=== PATIENT | male | born 1955 | race Caucasian/White ===

== ENCOUNTER 2020-09-29 07:07 | Observation (INO) | payer BC ==
[~2020-09-29] VITALS: Ht 180.3 cm; Wt 86.6 kg
[~2020-09-29 07:07] MED LIST: AZOR 10-20 MG1 EACH PO; GABAPENTIN100 MG PO; LOTREL 10-20 M1 EACH PO; METFORMIN HCL500 M2 PO; PROTONIX20 MG PO; TYLENOL EXTRA500 MG PO; ULTRAM50 MG PO
[2020-09-29] MEDS ORDERED: DEXAMETHASONE SOD PHOS 10 MG/1 ML VIAL ONE (07:41)
[2020-09-29] MEDS ORDERED: GABAPENTIN 300 MG CAP ONE (07:41)
[2020-09-29] MEDS ORDERED: CELECOXIB 200 MG CAP ONE (07:41)
[2020-09-29] MEDS ORDERED: CEFAZOLIN SOD 1 GM/NS 50ML 100 ML IV ONE (07:42)
[2020-09-29] MEDS ORDERED: ROPIVACAINE 246.25 MG, EPINEPHRINE HCL 1:1000 1ML 0.5 MG, CLONIDINE HCL 0.08 MG, KETORO... INJ ONE ×5 (08:00)
[2020-09-29] MEDS ORDERED: BUPIVACAINE 7.5MG/ML /DEXTROSE 82.5MG/ML 2 ML AMP INJ ONE (08:54)
[2020-09-29] MEDS ORDERED: VANCOMYCIN HCL 1,000 MG ONE (08:59)
[2020-09-29] MEDS ORDERED: TRANEXAMIC ACID 1,000 MG/10 ML ML ONE (09:00)
[2020-09-29] MEDS ORDERED: SODIUM CHLORIDE 0.9% 500ML 500 ML ONE (09:00)
[2020-09-29] MEDS ORDERED: HYDROCODONE/APAP 5MG-325MG TAB PO PRN (11:15)
[2020-09-29] MEDS ORDERED: KETOROLAC TROMETHAMINE 30 MG/ML VIAL IV PRN (11:15)
[2020-09-29] MEDS ORDERED: ZOLPIDEM TARTRATE 5 MG TAB PO PRN (11:15)
[2020-09-29] MEDS ORDERED: DOCUSATE SODIUM 100 MG CAP PO PRN (11:15)
[2020-09-29] MEDS ORDERED: DIPHENHYDRAMINE HCL INJ 50 MG/ML VIAL IV PRN (11:15)
[2020-09-29] MEDS ORDERED: HYDROCODONE/APAP 7.5MG-325MG 1 EA TAB PO PRN (11:15)
[2020-09-29] MEDS ORDERED: ACETAMINOPHEN 650 MG SUPP PR PRN (11:15)
[2020-09-29] MEDS ORDERED: FENTANYL CITRATE/PF 100MCG/2 ML INJ ONE (11:51)
[2020-09-29] MEDS ORDERED: INSULIN REGULAR, HUMAN 100 UNIT/1 ML 3ML VIAL ONE (12:02)
--- NOTE | 2020-09-29 12:26 | Diagnostic Imaging Report ---
EXAM: PELVIS AP 1-2 VIEWS DATE: 09/29/2020 11:49 AM INDICATION: Postop COMPARISON: None FINDINGS: There are post surgical changes from recent left hip arthroplasty. Hardware appears intact and in anatomic alignment. There is surrounding soft tissue edema and subcutaneous air present, likely postsurgical. Overlying skin sravan noted. There are moderate degenerative changes of the right hip. There is no evidence for acute fracture or dislocation. No focal lytic or blastic abnormality is identified. IMPRESSION: Expected postsurgical changes from recent left hip arthroplasty. Signed by: Dr. Roger Oates MD on 09/29/2020 12:23 PM
--- OUTSIDE RECORDS SUMMARY | 2020-09-29 13:02 | XMS REPORT | Continuity of Care Document ---
Author Author [facility] t Organization [facility] Address [address] [place] [id number] Phone Unavailable Care Team Providers Care Senior Materials Scientist Name Role Phone VALENTINE BUNCH Attphypatricia Unavailable Marlene GRUBER Admphypatricia Unavailable Payers Payer Name Policy Type Policy Number Effective Date Expiration Date S ource Problems This patient has no known problems. Allergies, Adverse Reactions, Alerts Allergy Name Allergy Type Status Severity Reaction(s) Onset Date Inacti ve Date Treating Clinician Comments Source No Known Allergies DA Active U 2015-02-02 00:00:00 [facility] Medications This patient has no known medications. Procedures This patient has no known procedures. Results Test Description Test Time Test Comments Results Result Comments Source PELVIS AP 1-2 VIEWS 2020-09-29 12:22:00 [facility] 1955 Sex: M [facility] [address] [place], [place] [address] Patient Name: ANDREA GAUTAM MR #: [id number] : 1955 Age/Sex: 65/M Req #: [id number] Adm Physician: Ordered by: VALENTINE BUNCH MD Report #: [id number] Location: OR Room/Bed: Procedure: [id number] DX/PELVIS AP 1-2 VIEWS Exam Date: 09/29/20 Exam Time: 1149 REPORT STATUS: Signed EXAM: PELVIS AP 1-2 VIEWS DATE: 09/29/2020 11:49 AM INDICATION: Postop COMPARISON: None FINDINGS: There are post surgical changes from recent left hip arthroplasty. Hardware appears intact and in anatomic alignment. There is surrounding soft tissue edema and subcutaneous air present, likely postsurgical. Overlying skin sravan noted. There are moderate degenerative changes of the right hip. There is no evidence for acute fracture or dislocation. No focal lytic or blastic abnormality is identified. IMPRESSION: Expected postsurgical changes from recent left hip arthroplasty. Signed by: Dr. Roger Oates MD on 09/29/2020 12:23 PM Dictated By: ROGER OATES MD 1223 Transcribed By: HARESH on 09/29/20 1223 COPY TO: VALENTINE BUNCH MD
[2020-09-29] MEDS ORDERED: PROPOFOL IV EMULSION 10 MG/ML 20 ML VIAL ONE (13:07)
[2020-09-29] MEDS ORDERED: ONDANSETRON HCL INJ 2MG/ML 2ML 2 MG/ML VIAL ONE (13:07)
[2020-09-29] MEDS ORDERED: DEXAMETHASONE SOD PHOS INJ 4 MG/ML VIAL ONE (13:07)
[2020-09-29] MEDS ORDERED: KETOROLAC TROMETHAMINE 30 MG/ML VIAL ONE (13:07)
[2020-09-29] MEDS ORDERED: SEVOFLURANE INHAL SOLN 250 ML PEN BTL ONE (13:07)
[2020-09-29] MEDS ORDERED: LIDOCAINE HCL 2% JELLY 5 ML TUBE ONE (13:07)
[2020-09-29] MEDS ORDERED: ROCURONIUM BROMIDE 10 MG/ML 5ML VIAL IV ONE (13:07)
[2020-09-29] MEDS ORDERED: LIDOCAINE HCL 2% LOCAL INJ 5 ML SDV VIAL INJ ONE (13:07)
--- NOTE | 2020-09-29 13:31 | NUR ---
RECEIVED REPORT FROM [facility]ADR[facility] PACU. PATIENT ON THE UNIT @ 1320 VIA STRETCHER. PATIENT IN STABLE CONDITION, NO S/S OF DISTRESS NOTED. NO PAIN VOICE. RESPIRATIONS, EVEN AND NONLABORED. DRESSING TO THE RIGHT HIP C/D/I. IV SITE ASYMPTOMATIC AND PATENT, TRANSPARENT DRESSING C/D/I. ABDUCTOR PILLOW IN PLACE. RAOUL HOSE APPLIED. BED IN LOWEST POSITION AND LOCKED, SIDE RAILS X 2, NONSKID SOCKS APPLIED CALL LIGHT WITHIN REACH.
--- NOTE | 2020-09-29 13:38 | Operative Report ---
DATE OF PROCEDURE: 09/29/2020 SURGEON: Huseyin Armenta MD TECHNICAL PUBLICATIONS WRITER: Nathaniel Hernandez, certified PA. PREOPERATIVE DIAGNOSIS: Osteoarthritis, left hip. POSTOPERATIVE DIAGNOSIS: Osteoarthritis, left hip. PROCEDURE: Left total hip arthroplasty. INDICATIONS: The patient is a 65-year-old gentleman with advanced osteoarthritis of both knees and both hips. He presented to my office with the desire to proceed with definitive treatment. He would like to start with a left total hip replacement. The risks and benefits of the procedure were thoroughly explained. All of his questions were answered. He states he understands and wishes to proceed. DESCRIPTION OF PROCEDURE: The patient was brought to the operating room and placed under general anesthetic. He received prophylactic antibiotics and tranexamic acid in the holding area. He was positioned in the right lateral decubitus position. His left hip was prepped and draped in a sterile manner. A preoperative time-out was performed. A posterior approach was made to the left hip. Hemostasis was obtained with electrocautery. The deep fascia was incised and a self-retaining Charnley retractor was placed. The hip was severely contracted. Exposure of the posterior capsule was challenging. A portion of the short external rotators and posterior capsule were released. Additional soft tissue releases were performed to eventually allow dislocation of the hip joint. An oscillating saw was used to resect the femoral head. Complete loss of articular cartilage was noted. Acetabular retractors were placed. A fairly aggressive soft tissue releases were necessary to gain exposure to the socket. Even with these releases, exposure was challenging. The true floor of the acetabulum was established with a 46 mm reamer. The socket was sequentially reamed up to 59 mm. This accomplished bleeding hemispherical cancellous bone. A Benigno Biomet OsseoTi socket with a 60 mm outer diameter was then impacted into place. Good primary bone fixation was felt to be obtained. Fixation was augmented with a single 25 mm cancellous screw placed into the ilium. A highly cross-linked polyethylene liner with a 36 mm inner diameter was then seated into place. Care was taken to make sure that there was no evidence of soft tissue interposition. The hip was thoroughly irrigated on several occasions with a shower tip pulsatile lavage. The socket was then packed with a moistly soaked lap sponge. Attention was directed towards the proximal femur. A box cutting osteotome and taper pin reamer were used to establish entry to the femoral canal. The Benigno/Biomet taper lock broaches were impacted. It required in size 18 stem to have good canal fill and stability for trial reduction. I elected to use a +3 mm head to diminish anterior impingement. This also seemed to provide appropriate religious of limb length and good stability throughout the arc of motion. With bilateral significant knee contractures, assessment of limb length was challenging. The trial components were then removed. The hip was further irrigated with a shower tip pulsatile lavage. The implant was seated in approximately 15 degrees of anteversion. The +3 mm neck and 36 mm ceramic head were then seated onto the stem once it had been cleaned and dried. A final reduction was performed. A large thickened portion of the posterior capsule was preserved and was repaired using #2 Ethibond. The hip was further irrigated and then 500 mg of vancomycin powder were sprinkled into the deep wound. The fascia was closed with interrupted #2 Ethibond. The skin was closed with subcuticular Vicryl and sravan. A sterile bandage was applied. The patient was returned to the supine position, extubated and transported to recovery room in stable condition. Estimated blood loss was 100 mL. All needle and sponge counts were correct. Huseyin Armenta MD DR/KENYON /[id number]
[2020-09-29 13:48] VITALS: BP 118/75
[2020-09-29 13:57] VITALS: BP 118/75
[2020-09-29] MEDS: SODIUM CHLORIDE 0.9% 1000ML 1,000 ML IV SCH ×2 (14:24→22:28)
[2020-09-29] MEDS: ONDANSETRON HCL INJ 2MG/ML 2ML 2 MG/ML VIAL IV PRN (15:54)
[2020-09-29 16:00] VITALS: BP 130/86
--- NOTE | 2020-09-29 16:05 | NUR ---
DR DONNELLY OFFICE PREARRANGED FOLLOWING DISCHARGE PLAN OF:HOME [address] [facility], [address] HOME HE[facility] WITH [facility] CONFIRMED WITH [phone] DME 3 IN ONE COMMODE AND ROLLING WALKER WITH WHEELS. PROVIDED BY [employer] TO BE DELIVERED TO ROOM PRIOR TO DISCHARGE.
[2020-09-29] MEDS: ASPIRIN 325 MG TAB PO SCH (17:55)
[2020-09-29] MEDS: CELECOXIB 200 MG CAP PO SCH (17:55)
[2020-09-29] MEDS: CEFAZOLIN SOD 1 GM/NS 50ML 50 ML IV SCH (17:56)
[2020-09-29] MEDS ORDERED: ACETAMINOPHEN 325 MG TAB PO PRN (18:00)
--- NOTE | 2020-09-29 18:35 | Consultation ---
DATE OF CONSULTATION: 09/29/2020 REASON FOR CONSULTATION: Medical management. HISTORY OF PRESENT ILLNESS: This is a 65-year-old white man, who was initially admitted to [facility] with diagnosis of advanced left hip osteoarthritis. Today, the patient underwent left total hip arthroplasty, which was performed by Dr. Huseyin Armenta. The patient states he is doing well. The patient states this pain is well controlled. The patient voiced no complaints this time. REVIEW OF SYSTEMS: GENERAL: Weight is stable. No fever or chills. HEENT: No headaches, no vision changes. CARDIOVASCULAR/RESPIRATORY: No chest pain, no short of breath or cough. GI: No nausea, vomiting, or constipation. : No dysuria or hematuria incontinence. No Blood catheter in place. NEUROMUSCULAR: No limb weakness or numbness. The patient states he does have arthritic pain in his bilateral knees. The patient states he does have arthritic joint pain in his bilateral knees. The patient states his left hip joint pain is currently well controlled. ALLERGIES: CODEINE. HOME MEDICATIONS: 1. Acetaminophen 500 mg every 6 hours p.r.n. pain. 2. Amlodipine/benazepril 10 mg/20 mg once daily. 3. Gabapentin 100 mg at bedtime. 4. Metformin 500 mg b.i.d. 5. Pantoprazole 40 mg daily. 6. Tramadol 50 mg at bedtime prn pain.. SURGICAL HISTORY: 1. Bilateral knee arthroscopy. 2. Left total hip arthroplasty today. SOCIAL HISTORY: He is , lives with his . He does not smoke tobacco. He does drink alcohol in the form of a beer, usually two beers a week. 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 FAMILY HISTORY: Noncontributory. PAST MEDICAL HISTORY: 1. Hypertensive heart disease. 2. Type 2 diabetes. 3. GERD. 4. Generalized osteoarthritis. PHYSICAL EXAMINATION: GENERAL: He is awake, alert, fully oriented and very pleasant exam. The patient is quite talkative. He is in no obvious distress. His is at bedside, height 5 feet 11 inches, weight 190 pounds, BMI 26. VITAL SIGNS: Blood pressure is 130/86, pulse is 100, respiratory rate is 22, temperature 97.6, oxygen 100% on room air. INTEGUMENT: Skin is warm and dry. No pallor, jaundice, diaphoresis. HEENT: Anicteric sclerae. Moist mucous membranes. The patient has bilateral Thad's sign. NECK: Supple. CARDIOVASCULAR: Regular rate and rhythm. LUNGS: No rales, no rhonchi, no wheezes. ABDOMEN: Benign. Normal bowel sounds, nontender. EXTREMITIES: The patient's left hip incisional wound is currently dressed and clean, dry, intact. EXTREMITIES: No edema or deformity. NEUROLOGIC: Intact. DIAGNOSES: 1. Status post left total hip arthroplasty. 2. Hypertensive heart disease. 3. Type 2 diabetes mellitus. 4. Generalized osteoarthritis (most predominantly in knees and hands). PLAN: 1. Blood glucose control. 2. Blood pressure control. 3. Mobilize patient. 4. Encourage incentive spirometer use to prevent atelectasis. 5. Pain control. 6. I would like to thank, Dr. Armenta, for this generous consult. I spent 40 minutes in the care of the patient. MD ELLIOTT Perez/KENYON /[id number] MTDAlfreda
--- NOTE | 2020-09-29 19:05 | NUR ---
WALKING ROUNDS PERFORMED, RECEIVED PT LAYING SEMI FOWLERS IN BED, AAOX3, RR EVEN AND NON-LABORED, ON ROOM AIR. AQUACEL DRESSING TO (L) HIP NOTED TO BE CDI. ABDUCTOR PILLOW IN PLACE AND SECURED BETWEEN LEGS. LEFT PT LAYING SEMI FOWLERS IN BED, BED IN LOW LOCKED POSITION, SIDE RAILS UPX2, CALL LIGHT AND PHONE WITHIN REACH.
--- NOTE | 2020-09-29 19:12 | NUR ---
COMPLETED BEDSIDE SHIFT REPORT AND ROUNDING WITH ONCOMING NIGHT NURSE. PATIENT IN STABLE CONDITION, NO S/S OF DISTRESS NOTED. NO PAIN VOICE. RESPIRATIONS, EVEN AND NONLABORED. DRESSING TO THE LEFT HIP C/D/I. IV SITE ASYMPTOMATIC AND PATENT, TRANSPARENT DRESSING C/D/I. ABDUCTOR PILLOW IN PLACE. FOOT PUMP APPLIED. RAOUL HOSE APPLIED. BED IN LOWEST POSITION AND LOCKED, SIDE RAILS X 2, NONSKID SOCKS APPLIED CALL LIGHT WITHIN REACH.
[2020-09-29 20:00] VITALS: BP 109/62
[2020-09-29] MEDS ORDERED: TRAMADOL HCL 50 MG TAB PO SCH (21:00)
[2020-09-29] MEDS ORDERED: GABAPENTIN 100 MG CAP PO SCH (21:00)
[2020-09-29 21:07] VITALS: BP 147/81
[2020-09-29] MEDS ORDERED: CEPACOL SORE THROAT LOZENGES PO PRN (21:45)
[2020-09-30] VITALS: BP 135/90
[2020-09-30] MEDS: CEFAZOLIN SOD 1 GM/NS 50ML 50 ML IV SCH ×2 (01:53→08:54)
[2020-09-30 04:00] VITALS: BP 141/79
[2020-09-30 05:28] LABS: BASOPHILS % 0.1 % (0.0-1.0); HEMATOCRIT 31.1 % (38.2-49.6); HEMOGLOBIN 11.1 g/dL (14.0-18.0); LYMPHOCYTES % 9.6 % (18.0-39.1); MEAN CORPUSCULAR HEMOGLOBIN 28.4 pg (28-32); MEAN CORPUSCULAR HGB CONC 35.7 g/dL (31-35); MEAN CORPUSCULAR VOLUME 79.5 fL (81-99); MONOCYTES # (AUTO) 0.7 (0.2-0.8); MONOCYTES % 7.3 % (4.4-11.3); NEUTROPHILS # (AUTO) 8.2 (2.1-6.9); NEUTROPHILS % 82.5 % (38.7-80.0); PLATELET COUNT 150 x10e3/uL (140-360); RED BLOOD COUNT 3.91 x10e6/uL (4.3-5.7); RED CELL DISTRIBUTION WIDTH 12.5 % (11.7-14.4)
[2020-09-30 05:49] LABS: ALANINE AMINOTRANSFERASE 22 IU/L (0-55); ALBUMIN 3.3 g/dL (3.5-5.0); ALBUMIN/GLOBULIN RATIO 1.3 (0.8-2.0); ALKALINE PHOSPHATASE 92 IU/L (40-150); ANION GAP 10.3 mmol/L (8-16); BLOOD UREA NITROGEN 19 mg/dL (7-26); BUN/CREATININE RATIO 24 (6-25); CALCIUM 8.5 mg/dL (8.4-10.2); CARBON DIOXIDE 26 mmol/L (22-29); CHLORIDE 101 mmol/L (98-107); CREATININE, SERUM 0.78 mg/dL (0.72-1.25); EST GLOMERULAR FILTRATION RATE > 60 ML/MIN (60-); GLUCOSE 200 mg/dL (74-118); POTASSIUM 4.3 mmol/L (3.5-5.1); SODIUM 133 mmol/L (136-145)
--- NOTE | 2020-09-30 07:00 | NUR ---
Received patient resting in bed. No s/s of distress. Bed low, wheels locked, side rails x2. Call light in reach will continue to monitor patient.
[2020-09-30 08:09] VITALS: BP 146/88
[2020-09-30] MEDS: ASPIRIN 325 MG TAB PO SCH (08:53)
[2020-09-30] MEDS: CELECOXIB 200 MG CAP PO SCH (08:53)
[2020-09-30] MEDS: SODIUM CHLORIDE 0.9% 1000ML 1,000 ML IV SCH (08:54)
[2020-09-30] MEDS ORDERED: METFORMIN HCL 500 MG TAB CR PO SCH (09:00)
[2020-09-30] MEDS ORDERED: BENAZEPRIL HCL 10 MG TAB PO SCH (09:00)
[2020-09-30] MEDS ORDERED: PANTOPRAZOLE SOD 40 MG TABEC PO SCH (09:00)
[2020-09-30] MEDS ORDERED: AMLODIPINE BESYLATE 10 MG TAB PO SCH (09:00)
[2020-09-30 09:12] VITALS: BP 146/88
--- NOTE | 2020-09-30 09:21 | Progress Note ---
DATE: 09/30/2020 CHIEF COMPLAINT/HISTORY OF PRESENT ILLNESS: This is a 65-year-old white man whose primary treating diagnosis is recent left total hip arthroplasty. The patient underwent the surgical procedure yesterday on Tuesday, September 29, 2020. The patient tolerated surgery quite well. The patient states his pain was well controlled overnight with oral acetaminophen. The patient voices no complaints today. Today's hemoglobin is 11.1 g/dL. REVIEW OF SYSTEMS: As per HPI. PHYSICAL EXAMINATION: GENERAL: He is awake, alert. He is fully oriented. VITAL SIGNS: Height 5 feet 11 inches, weight 190 pounds, BMI 26. Blood pressure is 146/88, pulse 82, respiratory rate 22, temperature 98.0, oxygen saturation 100% on room air. SKIN: Warm and dry. No pallor, jaundice, or diaphoresis. HEENT: Anicteric sclerae. Moist mucous membranes. NECK: Supple. CARDIOVASCULAR: Distant heart sounds. Regular rate and rhythm with faint S4 gallop. LUNGS: No rales. No rhonchi. No wheezes. ABDOMEN: Benign. EXTREMITIES: The patient's left hip incision wound is currently dressed, but it is clean, dry, and intact. The patient has no edema in legs. NEUROLOGIC: Intact. DIAGNOSES: 1. Status post left total hip arthroplasty. 2. Hypertensive heart disease. 3. Type 2 diabetes mellitus. 4. Generalized osteoarthritis (knees and hands). PLAN: 1. Blood glucose control. 2. Blood pressure control. 3. Mobilize patient with therapy. 4. Encourage incentive spirometer usage to prevent atelectasis. 5. Pain control. 6. Discharge planning for today tentatively. 7. I would like to thank, Dr. Armenta, for involving me in the care of this patient. I spent 25 minutes in the care of the patient. MD ELLIOTT Perez/KENYON /[id number] MTDAlfreda
[2020-09-30] MEDS: ONDANSETRON HCL INJ 2MG/ML 2ML 2 MG/ML VIAL IV PRN (10:03)
[2020-09-30] MEDS ORDERED: ACETAMINOPHEN 1000 MG/100 ML IV PRN (11:15)
[2020-09-30 12:00] VITALS: BP 140/74
--- NOTE | 2020-09-30 12:15 | NUR ---
Removed patients IV. Catheter tip intact and pressure dressing applied.
--- NOTE | 2020-09-30 12:46 | NUR ---
Patient discharged from facility. Patient gathered all personal belongings, discharge instructions, and follow up information. Left unit in wheelchair and went home via private auto. No s/s of distress when leaving facility.
== END 2020-09-30 12:46 | disposition home or self-care (01) ==
LOC: OR 07:07 → PACU V 11:13 → MED/SURG 13:21
PROVIDERS: ADMIT Specialist; ATTEND Specialist
DX: M16.0 Bilateral primary osteoarthritis of hip (principal); M17.0 Bilateral primary osteoarthritis of knee; M16.12 Unilateral primary osteoarthritis, left hip; Z20.828 Contact with and (suspected) exposure to other viral communicable diseases; I11.9 Hypertensive heart disease without heart failure; E11.9 Type 2 diabetes mellitus without complications; M19.042 Primary osteoarthritis, left hand; M19.041 Primary osteoarthritis, right hand; Z01.818 Encounter for other preprocedural examination
CPT/HCPCS: 27130; 36415 ×2; 72170; 80053; 82948; 85025; 86850; 86900; 97110 ×2; 97116 ×2; 97161; 97530; G0378 ×2; J0171; J0690 ×2; J1100 ×2; J1817; J1885; J2001 ×2; J2405 ×2; J2704; J2795; J3010; J3370; J7030; J7040; S0164; U0002

== ENCOUNTER → 2025-05-19 | Day surgery (SDC) | payer BC ==
[2025-05-08 13:50] LABS: BASOPHILS % 0.3 % (0.0-1.0); EOSINOPHILS % 3.1 % (0.0-6.0); LYMPHOCYTES % 29.0 % (18.0-39.1); MONOCYTES % 9.4 % (4.4-11.3); NEUTROPHILS % 58.0 % (38.7-80.0); RED CELL DISTRIBUTION WIDTH 12.8 % (11.7-14.4)
[2025-05-08 14:24] LABS: EST GLOMERULAR FILTRATION RATE 96.0 ML/MIN (>=60)
[~2025-05-19] MED LIST changes: +ACETAMINOPHEN 1000 MG/100 ML 100 ML IV ONE; +AMLODIPINE-VAL1 EAC3 PO; +ATENOLOL50 MG PO; +BUPIVACAINE LIPOSOME/PF 266 MG/20 ML IJ ONE; +CRESTOR10 MG PO; +CYCLOBENZAPRINE10 MG PO; +DEXAMETHASONE SOD PHOS INJ 4 MG/ML SDV ONE; +EMERGEN-C 1,01000 MG PO; +EPHEDRINE SULFATE INJ 50 MG/ML VIAL ONE; +FENTANYL CITRATE/PF 100MCG/2 ML INJ ONE; +GLIMEPIRIDE2 MG PO; +HYDROCODON-ACE1 EA12 PO; +LIDOCAINE HCL 2% LOCAL INJ 5 ML SDV VIAL INJ ONE; +MULTI-VITAMIN1 EACH PO; +OMEPRAZOLE40 MG PO; +ONDANSETRON HCL 4 MG ORAL DISINTEGRATING TAB ONE; +ONDANSETRON HCL INJ 2MG/ML 2ML 2 MG/ML VIAL ONE; +PHENYLEPHRINE HCL 1% 10 MG/ML VIAL ONE; +PROPOFOL IV EMULSION 10 MG/ML 20 ML VIAL ONE; +ROCURONIUM BROMIDE 1 ML IV ONE; +ROPIVACAINE/EPI/CLONIDINE/KET 50 ML SYRINGE INJ ONE; +SEVOFLURANE INHAL SOLN 250 ML PEN BTL ONE; +SODIUM CHLORIDE 0.9% 200 ML ONE; +SUGAMMADEX SODIUM 200 MG/2 ML VIAL IV ONE; +SYNJARDY XR 121 EACH PO; +TESTOSTERONE SHOT; +Vancomycin IV 1 GM VIAL ONE
[2025-05-19] MEDS: LACTATED RINGER'S 1,000 ML ONE (06:14)
[2025-05-19] MEDS: CEFAZOLIN SODIUM 2 GM ONE (06:15)
[2025-05-19] MEDS: SODIUM CHLORIDE 0.9% 250ML 250 ML ONE (06:29)
[2025-05-19] MEDS: Vancomycin IV 1 GM VIAL ONE (06:29)
[2025-05-19 11:17] VITALS: TEMP 97
[2025-05-19] MEDS: ONDANSETRON HCL 4 MG ORAL DISINTEGRATING TAB PO ONE (13:22)
[2025-05-19 13:45] VITALS: BP 121/71; PULSE 85; RESP 15; O2SAT 100
== END | disposition home or self-care (01) ==
LOC: OR 05:31
PROVIDERS: ATTEND Orthopaedic Surgery Sports Medicine
DX: M19.011 Primary osteoarthritis, right shoulder (principal); M75.111 Incomplete rotator cuff tear or rupture of right shoulder, not specified as traumatic; S46.811A Strain of other muscles, fascia and tendons at shoulder and upper arm level, right arm, initial encounter; M75.21 Bicipital tendinitis, right shoulder; I10 Essential (primary) hypertension; E78.00 Pure hypercholesterolemia, unspecified; K21.9 Gastro-esophageal reflux disease without esophagitis; E11.9 Type 2 diabetes mellitus without complications; Z79.84 Long term (current) use of oral hypoglycemic drugs; X58.XXXA Exposure to other specified factors, initial encounter; Z01.810 Encounter for preprocedural cardiovascular examination; Z01.812 Encounter for preprocedural laboratory examination; Z01.818 Encounter for other preprocedural examination; Z79.899 Other long term (current) drug therapy
CPT/HCPCS: 23472; 36415 ×2; 71046; 73020; 80048; 82948; 85025; 86850; 86900; 93005; C1713; J0131; J0666; J1100; J2003; J2371; J2405; J2704; J3010; J3370; J7050 ×2; J7121; Q0162